=== PATIENT | female | born 1985 | race Caucasian/White ===

== ENCOUNTER 2022-05-11 19:03 | Emergency (ER) | payer OTHER, MEDICAID, SELFPAY ==
[2022-05-11 19:07] VITALS: BP 135/91; PULSE 77; RESP 18; TEMP 36.9; O2SAT 99; BMI 28.7
--- NOTE | 2022-05-11 19:23 | ED_ITS ---
HPI - Wound/Laceration General Time Seen by Provider: 19:23 Date Seen: 05/11/22 Chief Complaint: Laceration/Wound Stated Complaint: Left pinky lac Time Seen by Provider: 05/11/22 19:17 Source: patient and RN notes reviewed Mode of arrival: ambulatory Limitations: no limitations History of Present Illness HPI narrative: Patient sliced the and medial portion of her left 5th finger on a vegetable slicer tonight at work. The skin is totally gone. She came in as it will not quit bleeding. No blood thinners, last tetanus is likely up-to-date with her last when she delivered in January of 2020. She remembers getting tetanus updated. No other injuries. Place: work Patient tetanus UTD: Yes Context: accidental Related Data Home Medications Medication Instructions Recorded Confirmed levothyroxine 50 mcg tablet mcg 05/11/22 Allergies Allergy/AdvReac Type Severity Reaction Status Date / Time No Known Drug Allergies Allergy Verified 05/11/22 19:09 Review of Systems Narrative: As per HPI PFSH PFSH Social History Smoking Status: Never smoker How often do you have a drink containing alcohol: 2-3 times a week AUDIT-C Alcohol total score: 3 Non-prescribed substance use: denies use Exam Const: Vital Signs, click to edit/add: Vital Signs - 24 hr 05/11/22 19:07 Temperature 98.4 F Pulse Rate [Right Pulse Oximeter] 77 Respiratory Rate 18 Blood Pressure [Ri ght Upper Arm] 135/91 H Pulse Oximetry 99 Oxygen Delivery Me thod Room Air Documenting provider has reviewed patient's vital signs: yes Common normals: no apparent distress, oriented x3, no limitations, healthy appearing and alert Extremity: Other: On her medial distal fingers she has avulsed an area of skin, there is nothing to place back together. She actually took off the very distal end of that medial nail is well. It does not seem that it is into the nail bed but I have reviewed with her that there could be irregularity when this nail grows out. Luckily, the vast majority of the nail bed is normal. This is just exposed subcutaneous tissue with active ongoing bleeding. Surgical foam was applied and then a gauze and nonstick dressing were used to make a bandage. This seemed to control bleeding. Patient did not feel that the wrap was too tight. Neuro: Common normals: oriented x3 Sensorium/orientation: alert Course Course Hospital Course: Nursing staff had cleaned wound prior to my evaluation. Vital Signs Vital signs: Initial Vital Signs Temperature 98.4 F 05/11/22 19:07 Temperature Source Temporal Artery Scan 05/11/22 19:07 Pulse Rate 77 05/11/22 19:07 Respiratory Rate 18 05/11/22 19:07 Blood Pressure 135/91 H 05/11/22 19:07 Blood Pressure Mean 105 05/11/22 19:07 Blood Pressure Position Sitting 05/11/22 19:07 Pulse Oximetry 99 05/11/22 19:07 Oxygen Delivery Method 05/11/22 19:07 Vital Signs Temperature 98.4 F 05/11/22 19:07 Pulse Rate 77 05/11/22 19:07 Respiratory Rate 18 05/11/22 19:07 Blood Pressure 135/91 H 05/11/22 19:07 Pulse Oximetry 99 05/11/22 19:07 Oxygen Delivery Method 05/11/22 19:07 Temperature 98.4 F 05/11/22 19:07 Pulse Rate 77 05/11/22 19:07 Respiratory Rate 18 05/11/22 19:07 Blood Pressure 135/91 H 05/11/22 19:07 Pulse Oximetry 99 05/11/22 19:07 Oxygen Delivery Method 05/11/22 19:07 Critical Care Time Critical Care Time Critical Care Time: No Discharge Plan Discharge Clinical Impression: Avulsion of skin Patient Disposition: Home, Self-Care Condition: Stable Instructions: Laceration (ED) Additional Instructions: Leave the current dressing on for 48-72 hours if possible. If you do need to change it prior to that, do not pull the surgifoam off. Allow the Surgifoam to fall off on its own. Can start to try to soak it off after 3 days. Use bacitracin and bandages after that to protect this wound and keep it clean and dry. Over time new skin will fill an and this wound will heal. Use the laceration sheet to review wound care, to review any signs and symptoms of infection. If you do believe this wound is becoming infected, please seek re- evaluation. Activity Level: Activity as Tolerated Prescriptions: No Action levothyroxine 50 mcg tablet Follow Up/Referrals: Concepcion Rae MD [Primary Care Provider] - Stand Alone Forms: [employer] Info Instructions
[2022-05-11 20:13] VITALS: BP 135/91; PULSE 77; RESP 18; TEMP 36.9
== END 2022-05-11 20:14 | disposition home or self-care (01) ==
PROVIDERS: Emergency Provider Family Medicine; PCP Family Medicine
DX: S61.217A Laceration without foreign body of left little finger without damage to nail, initial encounter (principal); W27.8XXA Contact with other nonpowered hand tool, initial encounter; Y93.G3 Activity, cooking and baking; Y92.9 Unspecified place or not applicable; Y99.0 Civilian activity done for income or pay
CPT/HCPCS: 99282

== ENCOUNTER 2022-06-16 16:46 | Emergency (ER) | payer MEDICAID, SELFPAY ==
[2022-06-16 17:20] VITALS: BP 121/73; PULSE 90; RESP 20; TEMP 36.9; O2SAT 99; BMI 30.2
--- NOTE | 2022-06-16 17:53 | ED_ITS ---
HPI - Extremity Injury (Lower) General Chief Complaint: Extremity Pain/Injury, Lower Stated Complaint: Sprained Ankle Time Seen by Provider: 06/16/22 16:53 History of Present Illness HPI Narrative: This 36-year-old female comes in with an injury to her right ankle that occurred this morning when playing with a basketball. She states that she was running and jumped for a lay-up. When she landed she rolled her right ankle. She states that she has continued to ambulate on this ankle after the injury until taking a nap this afternoon. After getting up from the nap her ankle was more stiff and painful. She has pain in the lateral portion of her right ankle just below the lateral malleolus. There is no significant swelling or sign of deformity. Related Data Home Medications Medication Instructions Recorded Confirmed levothyroxine 50 mcg tablet mcg 05/11/22 Previous Rx's Medication Instructions Recorded Crutches- Adult #1 ea 06/16/22 ketorolac 10 mg tablet 10 mg PO Q8H 5 days #15 tabs 06/16/22 Allergies Allergy/AdvReac Type Severity Reaction Status Date / Time No Known Drug Allergies Allergy Verified 05/11/22 19:09 Review of Systems Status of ROS: Reports: 10 or more systems reviewed and unremarkable except as noted in History and below Narrative: Constitutional: No fevers, no weight gain or loss. Eyes: No discharge. No vision changes. HENT: No congestion, no sore throat, no ear pain. Cardiovascular: No chest pain, no palpitations. Respiratory: No shortness of breath, no wheezes, no cough. Gastrointestinal: No abdominal pain, no vomiting, no diarrhea. Genitourinary: No dysuria, no hematuria. Musculoskeletal: Right ankle injury as described above. Skin: No rashes, no pruritis. Neurological: No dizziness, weakness, sensory change, speech change. Endo/Heme/Allergies: No bruising or bleeding. No polydipsia. Pysch: no suicidality, no anxiety, no insomnia. All other systems reviewed and are negative. PFSH PFSH Social History Smoking Status: Never smoker Do you use any of these nicotine containing products: None How often do you have a drink containing alcohol: 2-3 times a week How many standard drinks containing alcohol do you have on a typical day: 1 or 2 How often do you have six or more drinks on one occasion: Never AUDIT-C Alcohol total score: 3 Non-prescribed substance use: denies use Exam Narrative: Exam Narrative: Constitutional: Well-developed, well-nourished, no acute distress. HEENT: Normocephalic, atraumatic. Neck: Normal range of motion. Nontender. Supple. Heart: Intact distal pulses. Lungs: No chest discomfort. No wheezes, rhonchi, or rales. Abdomen: Nontender. Back: Normal range of motion. Extremities: Right ankle has very mild swelling on the lateral aspect. She has tenderness when palpating over the ligaments on lateral portion of the right ankle. There is no point tenderness when palpating over the medial or lateral malleoli. Skin: Intact. No rash. Warm. No erythema or pallor. Neurologic: No altered sensation. No weakness. Alert and oriented. Psychiatric: No suicidality. No anxiety or depression. No insomnia. Nursing notes and vitals signs are reviewed. Const: Vital Signs, click to edit/add: Vital Signs - 24 hr 06/16/22 17:20 Temperature 98.5 F Pulse Rate [Right Pulse Oximeter] 90 Respiratory Rate 20 Blood Pressure [Le ft Upper Arm] 121/73 Pulse Oximetry 99 Oxygen Delivery Me thod Room Air Course Vital Signs Vital signs: Initial Vital Signs Temperature 98.5 F 06/16/22 17:20 Temperature Source Temporal Artery Scan 06/16/22 17:20 Pulse Rate 90 06/16/22 17:20 Respiratory Rate 20 06/16/22 17:20 Blood Pressure 121/73 06/16/22 17:20 Blood Pressure Mean 89 06/16/22 17:20 Blood Pressure Position Sitting 06/16/22 17:20 Pulse Oximetry 99 06/16/22 17:20 Oxygen Delivery Method 06/16/22 17:20 Vital Signs Temperature 98.5 F 06/16/22 17:20 Pulse Rate 90 06/16/22 17:20 Respiratory Rate 20 06/16/22 17:20 Blood Pressure 121/73 06/16/22 17:20 Pulse Oximetry 99 06/16/22 17:20 Oxygen Delivery Method 06/16/22 17:20 Temperature 98.5 F 06/16/22 17:20 Pulse Rate 90 06/16/22 17:20 Respiratory Rate 20 06/16/22 17:20 Blood Pressure 121/73 09/27/22 17:20 Pulse Oximetry 99 06/16/22 17:20 Oxygen Delivery Method 06/16/22 17:20 MDM - Extremity Injury (Lower) MDM Narrative Medical decision making narrative: This patient comes in with an injury to her right ankle as described above. She was ambulatory but after taking a nap with associated inactivity she now has increased pain and stiffness. X-ray imaging by my review shows no sign of fracture or avulsion. The patient is encouraged to increase activity as tolerated. She did receive crutches and a prescription for Toradol. Imaging Data XR R Ankle: My impression: No sign of fracture. Radiology report is pending. Discharge Plan Discharge Clinical Impression: Ankle sprain and strain Patient Disposition: Home, Self-Care Condition: Stable Additional Instructions: Use crutches as needed and increase ambulating as tolerated. Take medication as needed and directed. Follow up with MD or return if worsening. Prescriptions: New ketorolac 10 mg tablet 10 mg PO Q8H 5 Days Qty: 15 0RF (DME) Crutches- Adult Misc See Rx Instructions .ROUTE .MEDSUPPLY Qty: 1 0RF Rx Instructions: As directed No Action levothyroxine 50 mcg tablet Follow Up/Referrals: Concepcion Rae MD [Primary Care Provider] - Stand Alone Forms: [employer] Info Instructions
--- NOTE | 2022-06-16 18:30 | CRLHL7_ITS ---
For Patients: As a result of the Cures Act, medical imaging exams and procedure reports are released immediately into your electronic medical record. You may view this report before your referring provider. If you have questions, please contact your health care provider. Indication: Injury Technique: Right ankle 3 views. Comparison: None. Findings: No acute displaced fracture or malalignment. No soft tissue swelling. Joint spaces are maintained. Bony mineralization is age appropriate. No acute displaced fracture or malalignment. Dictated by Lamberto Edwards MD @ 06/16/2022 7:29:58 PM (Electronically Signed)
== END 2022-06-16 20:11 | disposition home or self-care (01) ==
PROVIDERS: Emergency Provider Emergency Medicine Emergency Medical Services; PCP Family Medicine
DX: S96.911A Strain of unspecified muscle and tendon at ankle and foot level, right foot, initial encounter (principal); Y93.67 Activity, basketball
CPT/HCPCS: 73610; 99283; 99284